=== PATIENT | male | born 1945 | race Caucasian/White ===

== ENCOUNTER → 2017-01-07 | Outpatient (CLI) | payer MEDICARE, OTHER ==
[~2017-01-07] MED LIST: ASPI325T4 PO; ATOR40TA2 PO; AZIT250T81 PO; BISO1TAB95 PO; METF1000 PO; NF-ESOM40C PO
[2017-01-07 09:11] LABS: BASOPHILS % (AUTO) 1 % (0-2); EOSINOPHILS # (AUTO) 0.1 10^3uL; EOSINOPHILS % (AUTO) 3 % (0-4); LYMPHOCYTES # (AUTO) 1.1 X10^3; MEAN CORPUSCULAR VOLUME 86 FL (80-100); MONOCYTES # (AUTO) 0.4 X10^3; MONOCYTES % (AUTO) 11 % (3-11); NEUTROPHILS # (AUTO) 2.2 X10^3; NEUTROPHILS % (AUTO) 58 % (51-67); PLATELET COUNT 173 10^3uL (150-450); WHITE BLOOD COUNT 3.77 10^3uL (4.0-11.0)
[2017-01-07 09:12] LABS: MEAN CORPUSCULAR HGB CONC 31.6 g/dL (31.0-37.0)
[2017-01-07 09:29] LABS: ALBUMIN 4.4 g/dL (3.4-5.0); CALCULATED IONIZED CALCIUM 4.4 mg/dL (3.8-4.6); TOTAL PROTEIN 7.1 g/dL (6.4-8.5)
== END ==
LOC: LAB 08:48
PROVIDERS: ATTEND Internal Medicine
DX: Z00.00 Encounter for general adult medical examination without abnormal findings (principal); E11.9 Type 2 diabetes mellitus without complications; G60.3 Idiopathic progressive neuropathy; E78.4 Other hyperlipidemia; Z12.5 Encounter for screening for malignant neoplasm of prostate
CPT/HCPCS: 36415; 80053; 80061; 82043; 83036; 84443; 85025; G0103; 84153

== ENCOUNTER → 2017-01-20 | Outpatient (CLI) | payer MEDICARE, OTHER ==
--- NOTE | 2017-01-20 12:49 | Diagnostic Imaging Report ---
PROCEDURE: US Aorta Doppler. TECHNIQUE: Multiple real time grayscale images were obtained over the abdominal aorta in various projections. INDICATION: Aortic aneurysm seen on prior MRI. COMPARISON: Lumbar spine MRI dated 01/17/2016. FINDINGS: As seen on the prior MRI, there is aneurysm of the infrarenal abdominal aorta which today measures about 4.1 cm x 3.9 cm in diameter by a length of about 6 cm. This previously measured 3.6 cm x 3.5 cm, showing slight interval growth. There is moderate plaque within the aneurysm. The proximal abdominal aorta measures approximately 3.1 cm in diameter and the mid abdominal aorta measures about 2.9 cm in diameter. Velocities are 43 cm/s proximally, 65 cm/s mid abdominal aorta and 34 cm/s distally. The common iliac arteries bilaterally appear unremarkable. IMPRESSION: There has been slight interval increase in size of the infrarenal abdominal aortic aneurysm which now measures up to about 4.1 cm in maximum dimension compared to 3.6 cm on the prior MRI. Dictated by: Dictated on workstation # [id number]
== END ==
LOC: RAD 08:26
PROVIDERS: ATTEND Internal Medicine
DX: I71.4 Abdominal aortic aneurysm, without rupture (principal)
CPT/HCPCS: 93978